=== PATIENT | female | born 1990 | race Caucasian/White ===

== ENCOUNTER 2021-01-06 23:24 | Inpatient (IN) | payer SELFPAY ==
[2021-01-07] MEDS ORDERED: Ondansetron 4 MG/2 ML SDV IVPUSH PRN (00:01)
[2021-01-07] MEDS ORDERED: Nalbuphine 10 MG/1 ML Vial IVPUSH PRN (00:01)
[2021-01-07] MEDS ORDERED: Sodium Chloride 0.9% 10 ML Syringe FLUSH PRN (00:01)
[2021-01-07] MEDS ORDERED: Lactated Ringers 1,000 ML IV SCH (00:15)
[2021-01-07] MEDS ORDERED: Oxytocin/Lactated Ringers 10 UNIT/1,000 ML BAG IV SCH ×2 (00:15)
--- NOTE | 2021-01-07 06:03 | PCM.LDHP ---
L&D History of Present Illness - General Date of Service: 01/07/21 Admit Problem/Dx: Patient Status Order with Admit Dx/Problem 01/06/21 23:32 Patient Status [ADT] Routine 01/07/21 00:02 Patient Status [ADT] Routine Admission Diagnosis/Problem Admission Diagnosis/Problem - History of Present Illness Introduction:: Presented with SROM of clear fluid "down her legs". 30 year old at 38w2. [facility] with Dr. Crabtree without complications. Pain Score: 8 - Related Data Allergies/Adverse Reactions: Allergies Allergy/AdvReac Type Severity Reaction Status Date / Time Pet Dander Allergy Itching Uncoded 01/07/21 03:27 Past Medical History - Past Health History Medical/Surgical History: Denies Medical/Surgical History [employer] History: Reports: , Spontaneous - Past Surgical History HEENT Surgical History: Reports: Oral Surgery Other HEENT Surgeries/Procedures: wisdom Musculoskeletal Surgical History: Reports: Other (See Below) Other Musculoskeletal Surgeries/Procedures:: Left foot, clubbed foot Social & Family History - Family History Family Medical History: No Pertinent Family History - Tobacco Use Tobacco Use Status *Q: Never Tobacco User Second Hand Smoke Exposure: No - Caffeine Use Caffeine Use: Reports: None - Recreational Drug Use Recreational Drug Use: No H&P Review of Systems - Review of Systems: Review Of Systems: See Below General: Reports: No Symptoms HEENT: Reports: No Symptoms Pulmonary: Reports: No Symptoms Cardiovascular: Reports: No Symptoms Gastrointestinal: Reports: No Symptoms Genitourinary: Reports: No Symptoms Musculoskeletal: Reports: No Symptoms Skin: Reports: No Symptoms Psychiatric: Reports: No Symptoms Neurological: Reports: No Symptoms Hematologic/Lymphatic: Reports: No Symptoms Immunologic: Reports: No Symptoms L&D Exam - Exam Exam: See Below - Vital Signs Vital Signs: Last Vital Signs Temp 36.9 C 01/06/21 23:32 Pulse 90 01/06/21 23:32 Resp 16 01/06/21 23:32 BP 135/79 01/06/21 23:32 Pulse Ox 98 01/06/21 23:32 Weight: 108.409 kg - OB Specific Contraction Intensity: Strong Movement: Active Heart Tones: Present Heart Rate (FHR) Variability: Moderate (6-25 bmp) Presentation: Vertex - Saeed Score Saeed Score Cervix Position: Anterior Saeed Score Consistency: Soft Saeed Score Effacement: >80% Saeed Score Dilation: 3-4 cm Saeed Score 's Station: -2 Saeed Score Total: 10 - Exam General: Alert, Oriented HEENT: PERRLA, Conjunctiva Clear, EACs Clear, EOMI, Hearing Intact, Mucosa Moist & [place], Nares Patent, Normal Nasal Septum, Posterior Pharynx Clear, TMs Clear Neck: Supple, Trachea Midline Lungs: Clear to Auscultation, Normal Respiratory Effort Cardiovascular: Regular Rate, Regular Rhythm GI/Abdominal Exam: Normal Bowel Sounds, Soft, Non-Tender, No Organomegaly, No D istention, No Abnormal Bruit, No Mass Back Exam: Normal Inspection, Full Range of Motion Extremities: Normal Inspection, Normal Range of Motion, Non-Tender, No Pedal Edema, Normal Capillary Refill Skin: Warm, Dry, Intact Psychiatric: Alert, Normal Affect, Normal Mood - Patient Data Lab Results Last 24 hrs: Laboratory Results - last 24 hr 01/07/21 01/07/21 Range/Units 00:13 00:20 WBC 9.48 (3.98-10.04) K/mm3 RBC 4.13 (3.98-5.22) M/mm3 Hgb 12.1 (11.2-15.7) gm/dl Hct 36.9 (34.1-44.9) % MCV 89.3 (79.4-94.8) fl MCH 29.3 (25.6-32.2) pg MCHC 32.8 (32.2-35.5) g/dl RDW Std Deviation 48.4 H (36.4-46.3) fL Plt Count 278 (182-369) K/mm3 MPV 10.2 (9.4-12.3) fl Neut % (Auto) 72.9 H (34.0-71.1) % Lymph % (Auto) 15.5 L (19.3-51.7) % [place] % (Auto) 9.9 (4.7-12.5) % Eos % (Auto) 1.2 (0.7-5.8) Baso % (Auto) 0.2 (0.1-1.2) % Neut # (Auto) 6.91 H (1.56-6.13) K/mm3 Lymph # (Auto) 1.47 (1.18-3.74) K/mm3 [place] # (Auto) 0.94 H (0.24-0.36) K/mm3 Eos # (Auto) 0.11 (0.04-0.36) K/mm3 Baso # (Auto) 0.02 (0.01-0.08) K/mm3 SARS-CoV-2 RNA (PILY) Negative (NEGATIVE) Result Diagrams: 01/07/21 00:13 Problem List Initiated/Reviewed/Updated: Yes Orders Last 24hrs: Active Orders 24 hr Category Date Time Status Patient Status [ADT] Routine ADT 01/07/21 00:02 Active Activity as Tolerated [RC] PFP Care 01/07/21 00:02 Active Communication Order [RC] ASDIRECTED Care 01/07/21 00:02 Active Heart Tones [RC] ASDIRECTED Care 01/07/21 00:02 Active Non Stress Test [RC] PER UNIT ROUTINE Care 01/06/21 23:32 Active Notify Provider [RC] PFP Care 01/07/21 00:02 Active Notify Provider [RC] PRN Care 01/07/21 00:02 Active Peripheral IV Care [RC] . DIRECTED Care 01/07/21 00:02 Active Vital Signs [RC] PER UNIT ROUTINE Care 01/06/21 23:32 Active Vital Signs [RC] PER UNIT ROUTINE Care 01/07/21 00:02 Active Regular Diet [DIET] Diet 01/07/21 Breakfast Active RAPID PLASMA REAGIN,RPR [CHEM] Routine Lab 01/07/21 00:13 Received Lactated Ringers [Ringers, Lactated] 1,000 ml Med 01/07/21 00:15 Active IV ASDIRECTED Nalbuphine [Nubain] Med 01/07/21 00:01 Active 10 mg IVPUSH Q2H PRN Ondansetron [Zofran] Med 01/07/21 00:01 Active 4 mg IVPUSH Q4H PRN Oxytocin/Lactated Ringers [Pitocin in LR 10 Units/1,000 Med 01/07/21 00:15 Active ML] 10 unit in 1,000 ml IV .CONTINUOUS Oxytocin/Lactated Ringers [Pitocin in LR 10 Units/1,000 Med 01/07/21 00:15 Active ML] 10 unit in 1,000 ml IV TITRATE Sodium Chloride 0.9% [Saline Flush] Med 01/07/21 00:01 Active 10 ml FLUSH ASDIRECTED PRN Electronic Heart Tones Ext w TOCO [WOMSER] Ot 01/07/21 00:02 Ordered Routine Electronic Heart Tones Internal [WOMSER] Per Unit Ot 01/07/21 00:02 Or dered Routine Peripheral IV Insertion Adult [OM.PC] Routine Oth 01/07/21 00:02 Ordered Resuscitation Status Routine Resus Stat 01/06/21 23:32 Ordered Medication Orders Lactated Ringer's (Ringers, Lactated) 1,000 mls @ 100 mls/hr IV ASDIRECTED CAILIN Oxytocin/Lactated Ringer's (Pitocin In Lr 10 Units/1,000 Ml) 10 unit in 1,000 mls @ 12 mls/hr IV TITRATE CAILIN; Protocol Oxytocin/Lactated Ringer's (Pitocin In Lr 10 Units/1,000 Ml) 10 unit in 1,000 mls @ 500 mls/hr IV .CONTINUOUS CAILIN Last Admin: 01/07/21 05:17 Dose: 500 mls/hr Documented by: DECKAMB Nalbuphine HCl (Nalbuphine 10 Mg/1 Ml Vial) 10 mg IVPUSH Q2H PRN PRN Reason: Pain Last Admin: 01/07/21 03:28 Dose: 10 mg Documented by: DECKAMB Ondansetron HCl (Ondansetron 4 Mg/2 Ml Sdv) 4 mg IVPUSH Q4H PRN PRN Reason: Nausea/Vomiting Sodium Chloride (Sodium Chloride 0.9% 10 Ml Syringe) 10 ml FLUSH ASDIRECTED PRN PRN Reason: Keep Vein Open Assessment/Plan Comment:: Term labor. Desires unmedicated. IVF, labs, type and hold. Anticipate routine labor and spontaneous delivery.
[2021-01-07] MEDS ORDERED: Benzocaine/Menthol 20%-0.5% Spray 56 GM Canister TOP PRN (06:06)
[2021-01-07] MEDS ORDERED: Acetaminophen 325 MG Tab PO PRN (06:06)
[2021-01-07] MEDS ORDERED: Ibuprofen 600 MG Tab PO PRN (06:06)
[2021-01-07] MEDS ORDERED: Witch Hazel Medicated Pads 40/Jar TOP PRN (06:06)
--- NOTE | 2021-01-07 06:06 | PCM.SN.2 ---
- Free Text/Narrative Note: Stage I - Presented with SROM. Progressed to complete with one dose of nubain. Clear fluid. Stage II/III- of viable female with intact placenta immediately following. APGARS 8/9, 3080G at 0516. Head delivered in controlled manner over intact perineum. Body and shoulders without difficulty. To maternal abdomen. Cord clamped and cut. Vigorous cry. Cord blood collected. No lacerations. EBL 122.
--- NOTE | 2021-01-08 07:57 | PCM.DCSUM1 ---
Discharge Summary - Hospital Course Diagnosis: Stroke: No - Discharge Data Discharge Date: 01/08/21 Discharge Disposition: Home, Self-Care 01 Condition: Good - Referral to Home Health Primary Care Physician: Paula Crabtree MD - Patient Summary/Data Hospital Course: Stage I - Presented with SROM. Progressed to complete with one dose of nubain. C lear fluid. Stage II/III- of viable female with intact placenta immediately following. APGARS 8/9, 3080G at 0516. Head delivered in controlled manner over intact perineum. Body and shoulders without difficulty. To maternal abdomen. Cord clamped and cut. Vigorous cry. Cord blood collected. No lacerations. EBL 122. - Patient Instructions Diet: Usual Diet as Tolerated Activity: No Strenuous Activities Driving: May Drive Today Notify Provider of: Fever, Increased Pain, Swelling and Redness, Drainage, Nausea and/or Vomiting - Discharge Plan *PRESCRIPTION DRUG MONITORING PROGRAM REVIEWED*: No *COPY OF PRESCRIPTION DRUG MONITORING REPORT IN PATIENT QUINN: No Referrals: Paula Crabtree MD [Primary Care Provider] - (2 weeks) - Discharge Summary/Plan Comment DC Time >30 min.: No - General Info Date of Service: 01/08/21 Functional Status: Reports: Pain Controlled - Review of Systems General: Reports: No Symptoms HEENT: Reports: No Symptoms Pulmonary: Reports: No Symptoms Cardiovascular: Reports: No Symptoms Gastrointestinal: Reports: No Symptoms Genitourinary: Reports: No Symptoms Musculoskeletal: Reports: No Symptoms Skin: Reports: No Symptoms Neurological: Reports: No Symptoms Psychiatric: Reports: No Symptoms - Patient Data Vitals - Most Recent: Last Vital Signs Temp 37.0 C 01/08/21 02:59 Pulse 88 01/08/21 02:59 Resp 14 01/08/21 02:59 BP 106/61 01/08/21 02:59 Pulse Ox 97 01/08/21 02:59 Weight - Most Recent: 108.409 kg I&O - Last 24 hours: Intake & Output 01/07/21 01/08/21 01/08/21 22:59 06:59 14:59 Intake Total 240 Balance 240 Lab Results - Last 24 hrs: Laboratory Results - last 24 hr 01/07/21 Range/Units 00:13 RPR Non-reactive (NONREACTIVE) Med Orders - Current: Current Medications Acetaminophen (Acetaminophen 325 Mg Tab) 650 mg PO Q4H PRN PRN Reason: mild pain or fever Benzocaine/Menthol (Benzocaine/Menthol 20%-0.5% [place] 56 Gm Canister) 0 gm TOP ASDIRECTED PRN PRN Reason: Perineal Comfort Measure Lactated Ringer's (Ringers, Lactated) 1,000 mls @ 100 mls/hr IV ASDIRECTED CAILIN Oxytocin/Lactated Ringer's (Pitocin In Lr 10 Units/1,000 Ml) 10 unit in 1,000 mls @ 12 mls/hr IV TITRATE CAILIN; Protocol Oxytocin/Lactated Ringer's (Pitocin In Lr 10 Units/1,000 Ml) 10 unit in 1,000 m ls @ 500 mls/hr IV .CONTINUOUS CAILIN Last Admin: 01/07/21 05:17 Dose: 500 mls/hr Documented by: Ibuprofen (Ibuprofen 600 Mg Tab) 600 mg PO Q6H PRN PRN Reason: Mild pain or fever Last Admin: 01/07/21 20:57 Dose: 600 mg Documented by: Nalbuphine HCl (Nalbuphine 10 Mg/1 Ml Vial) 10 mg IVPUSH Q2H PRN PRN Reason: Pain Last Admin: 01/07/21 03:28 Dose: 10 mg Documented by: Ondansetron HCl (Ondansetron 4 Mg/2 Ml Sdv) 4 mg IVPUSH Q4H PRN PRN Reason: Nausea/Vomiting Sodium Chloride (Sodium Chloride 0.9% 10 Ml Syringe) 10 ml FLUSH ASDIRECTED PRN PRN Reason: Keep Vein Open Witch Marissa (Witch Marissa Medicated Pads 40/Jar) 1 pad TOP ASDIRECTED PRN PRN Reason: Perineal Comfort Measure - Exam General: Reports: Alert, Oriented HEENT: Reports: Pupils Equal, Pupils Reactive, EOMI, Mucous Membr. Moist/[place] Neck: Reports: Supple Lungs: Reports: Clear to Auscultation, Normal Respiratory Effort Cardiovascular: Reports: Regular Rate, Regular Rhythm GI/Abdominal Exam: Normal Bowel Sounds, Soft, Non-Tender, No Organomegaly, No Distention, No Abnormal Bruit, No Mass, Pelvis Stable Rectal (Female) Exam: Normal Exam, Normal Rectal Tone Back Exam: Reports: Normal Inspection, Full Range of Motion Extremities: Normal Inspection, Normal Range of Motion, Non-Tender, No Pedal Edema, Normal Capillary Refill Skin: Reports: Warm, Dry, Intact Wound/Incisions: Reports: Healing Well Neurological: Reports: No New Focal Deficit Psy/Mental Status: Reports: Alert, Normal Affect, Normal Mood
== END 2021-01-08 13:45 | disposition home or self-care (01) | DRG 807 ==
LOC: JD.OBCHECK 23:24 → JD.OB 23:25 → JD.OBCHECK 01-07 00:01 → JD.OB 01-07 00:02 → OBSVTOIN 01-07 05:16 → JD.OB 01-07 05:38
PROVIDERS: ADMIT Obstetrics & Gynecology; ATTEND Obstetrics & Gynecology
PROC: 10E0XZZ Delivery of Products of Conception, External Approach (ICD-10-PCS; principal; 2021-01-07)
DX: O80 Encounter for full-term uncomplicated delivery (principal); Z37.0 Single live birth; Z3A.38 38 weeks gestation of pregnancy; Z20.822 Contact with and (suspected) exposure to COVID-19
CPT/HCPCS: 36415; 59025; 59409; 85025; 86592; A9270-GY; J2300; J2590; U0002